=== PATIENT | male | born 1985 | race Caucasian/White ===

== ENCOUNTER 2020-09-27 10:17 | Emergency (ER) | payer BC, SELFPAY ==
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
[2020-09-27 10:30] VITALS: BP 160/98; PULSE 100; RESP 18; TEMP 36.6; O2SAT 98; BMI 33.4
[2020-09-27] MEDS: diphenhydrAMINE HCL 25 MG TABLET PO (10:41)
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
== END 2020-09-27 11:32 | disposition left against medical advice (07) ==
PROVIDERS: Emergency Provider Emergency Medicine
DX: T40.1X1A Poisoning by heroin, accidental (unintentional), initial encounter (principal); Y92.9 Unspecified place or not applicable
CPT/HCPCS: 99282; 99283; Q0163